=== PATIENT | female | born 1950 | race Caucasian/White ===

== ENCOUNTER → 2018-04-26 | Outpatient (CLI) | payer OTHER ==
[~2018-04-26] MED LIST: ASPIR 8181 MG PO; BALANCE B-1001 EACH PO; CENTRUM SILVER1 EAC4 PO; KEFLEX250 MG PO; LOSARTAN POTAS100 MG PO; MYRBETRIQ25 MG PO; NORCO 7.5-3251 EACH PO; PRILOSEC 20 MG20 MG PO; SYNTHROID100 MC1 PO; TUMS PO; VENTOLIN HFA 1818 GM INH; VITAMIN D-32000 UNIT PO; VITAMIN E400 UNIT PO
--- NOTE | ~2018-04-26 | EKG ---
[address] [address] ELECTROCARDIOGRAM REPORT Name: YASMINE VILLELA Room #: REG CLI [facility]#: [id number] Admission: 04/26/18 Attend Phys: Roe Beaulieu MD Discharge: Date of : 48 Report #: [id number] THIS REPORT FOR: //name// [facility] Test Date: 2018-04-26 Test Time: 15:13:45 Pat Name: YASMINE VILLELA Department: Room: Gender: F Interior Decorator Painting: Guillaume SANTILLAN : 1950 Requested By: Roe Beaulieu Order Number: [id number] MD: Jude Brock Measurements Intervals [place] Rate: 89 P: 50 [place]: 158 QRS: 1 QRSD: 85 T: 57 QT: 344 QTc: 419 Interpretive Statements Sinus rhythm Probable left atrial enlargement Consider anterior infarct Baseline wander in lead(s) I,II,aVR No previous ECG available for comparison Electronically Signed On 04-27-2018 9:04:33 CDT by Jude Brock [email or web address] <ELECTRONICALLY SIGNED> By: Jude Brock MD 04/27/18 0904 151 151 Jude Brock MD /JUANJO
== END ==
LOC: CV 14:54
DX: E06.3 Autoimmune thyroiditis (principal); R94.5 Abnormal results of liver function studies

== ENCOUNTER 2018-05-09 05:31 | Day surgery (SDC) | payer OTHER ==
[~2018-05-09] VITALS: Ht 162.6 cm; Wt 84.1 kg
--- NOTE | ~2018-05-09 | O ---
[facility] [place] [address] OPERATIVE REPORT Name: YASMINE VILLELA Room #: [facility].#: [id number] Admission: 05/09/18 Attend Phys: Roe Beaulieu MD Discharge: 05/10/18 Date of : 48 Report #: [id number] THIS REPORT FOR: //name// CC: Roe Tijerina MD Physician staff PATRIA Coronado MD DATE OF SERVICE: 05/09/2018 SURGEON: Roe Beaulieu MD PREOPERATIVE DIAGNOSES: 1. Hyperthyroidism. 2. Graves disease. POSTOPERATIVE DIAGNOSES: 1. Hyperthyroidism. 2. Graves disease. OPERATION PERFORMED: Total thyroidectomy. INDICATIONS: The patient is a 67-year-old female referred for consideration of total thyroidectomy in light of hyperthyroidism and Graves disease. The patient has a diffusely enlarged heterogenous thyroid on an ultrasound 02/23/2018. She has had a persistent elevation of T3 and high normal T4 with a depressed TSH. The patient has a history of this since the . She was treated with propylthiouracil in the , did seem to help for a few years, but has had an elevation of her liver enzymes. The patient is not interested in I-131 ablative therapy and is interested in more definitive treatment. We did discuss options of total thyroidectomy and the patient has elected to proceed. DESCRIPTION OF PROCEDURE: The patient was brought to the operating room and placed supine on the operating table. After adequate general anesthesia was achieved via endotracheal intubation, the patient's shoulder roll was placed and neck was extended. The planned incision was marked out in a relaxed skin tension line overlying the manubrium. This was injected with 1% Xylocaine with 1:100,000 epinephrine. As a separate part of the procedure, the [employer] nerve integrity monitor was applied to the electrodes from the endotracheal tube. Ground electrodes were placed in the soft tissue overlying the sternum and contralateral shoulder. Electrode resistance and impedance was measured and found to be acceptable. Threshold and stimulus intensity parameters were set and the patient was monitored for the entirety of the case for approximately 2 hours in order to [place] [address] [place] [address] OPERATIVE REPORT Name: YASMINE VILLELA Room #: DEP [facility] M.R.#: [id number] Admission: 05/09/18 Attend Phys: Roe Beaulieu MD Discharge: 05/10/18 Date of : 48 Report #: [id number] locate and protect the recurrent laryngeal nerve. Anesthesia was made aware of her hyperthyroidism. Because of low heart rate, beta blockade was not done, but anesthesia technique with such to protect against thyroid storm. She was prepped and draped in a sterile fashion. The procedure began with incision through skin, subcutaneous tissue and platysma. Subplatysmal flaps were elevated superiorly and inferiorly. Dissection was made down to the strap muscles. These were divided vertically in the midline and retracted laterally. Examination revealed a very vascular, heterogenous enlarged thyroid. Dissection began on the patient's left side using the Harmonic scalpel. The superior lobe was dissected free. The superior thyroid artery and vein were clipped between Ligaclips and divided. Middle thyroid vein was taken down between Ligaclips and then dissection began inferiorly. The inferior vessels were sequentially identified, clamped between Ligaclips and divided. Isthmus was then dissected off the trachea. This was divided to the right midline to keep the isthmus with the left lobe. This was then rotated up on to the trachea. Dissection in the tracheoesophageal groove revealed the recurrent laryngeal nerve in its usual anatomic position. This was confirmed with probe stimuli and tracked superiorly to the cricothyroid joint. Both the superior and inferior parathyroid were found attached to the thyroid capsule. These were dissected free, left pedicled on their blood supply and preserved. Mahmood's ligament was then taken down sharply. Care was taken to be sure that the nerve was in direct vision at all times and this lobe delivered off field as specimen to pathology including the left thyroid lobe and isthmus. Attention was then turned to the right side. Again superiorly, the superior vessels were sequentially identified, clamped between Ligaclips and divided. The middle thyroid vein was taken down between Ligaclips and the inferior vessels were sequentially identified, clamped between Ligaclips and divided. This lobe was then rolled up on to the trachea. Dissection in the tracheoesophageal groove revealed the recurrent nerve. This was tracked superiorly to the cricothyroid joint. Having this in direct vision, Mahmood's ligament was taken down. Both superior and inferior parathyroid were again attached to the capsule, dissected free and preserved. This lobe was delivered off the field as a separate specimen and labeled right lobe. Hemostasis was then assured with a clip ligature and bipolar cautery. The gland as predicted was a very vascular gland. Irrigation was done on both sides. Once hemostasis was assured, powdered Nick was placed into each tracheoesophageal groove. No other packing was done. The patient's wound was then closed in layers with closing the strap muscles vertically in the midline with interrupted 3-0 Vicryl. Prior to closure, a 10-Turkish Panfilo drain was placed through a separate stab incision, curled into the wound and connected to bulb suction. This was drained and was sutured in place with 2-0 silk. The [address] [place] [address] OPERATIVE REPORT Name: VILLELAYASMINE Shania Room #: DEP [facility]..#: [id number] Admission: 05/09/18 Attend Phys: Roe Beaulieu MD Discharge: 05/10/18 Date of : 48 Report #: [id number] platysmal layer was then closed with interrupted 4-0 Vicryl, 4-0 Vicryl deep dermal sutures were then placed and a 5-0 running subcuticular Prolene on skin. Mastisol and Steri-Strips were applied followed by an Op-Site. The patient was then returned to anesthesia, awakened without difficulty, returned to recovery in good condition. Sponge and needle counts were correct. There were no complications. Blood loss was about 20 mL. The patient will be watched overnight for monitoring. Intraoperatively, she had no difficulty with hypertension or tachycardia. Presuming the patient does well, she may be discharged in the morning with plans to follow up with me in 48 hours for drain removal, 1 week for suture removal. Written and verbal discharge instructions and emergency precautions have been given to her . DISCHARGE MEDICATIONS: Include cephalexin 500 mg q.i.d. for 10 days, Phenergan suppository 25 mg 1 per rectum q. 4-6 hours p.r.n., hydrocodone/acetaminophen 7.5/325 one to two q. 4-6 hours p.r.n. She will start Synthroid 100 mcg one p.o. every day and Tums 2 tablets t.i.d. for calcium. She is instructed on light activity and a soft diet. <ELECTRONICALLY SIGNED> By: Roe Beaulieu MD 05/14/18 1220 1514 1719 Roe Beaulieu MD /nt
--- NOTE | ~2018-05-09 | PATH ---
[facility] [place] [address] PATHOLOGY RPT PROCEDURE Name: ROCIO VILLELA Room #: DEP [facility] M.R.#: [id number] Admission: 05/09/18 Date of : 48 Discharge: 05/10/18 Report #: [id number] Path Case #: [id number] [facility] Accession Number: [id number] . 01 Material submitted: . PART A: LEFT THYROID LOBE AND ISTHMUS PART B: RIGHT THYROID LOBE . 01 Clinical history: . Pre-op diagnosis: Hyperthyroiditis Post-op diagnosis: Hyperthyroidism . 02 Diagnosis: A. "Left thyroid lobe and isthmus", thyroid lobectomy: - Thyroid gland with nodular hyperplasia, marked chronic thyroiditis, extensive Hurthle cell metaplasia and focal areas consistent with hyperfunctioning thyroid gland tissue. - Lymph nodes, (8) perithyroidal, with mild hyperplasia (8 nodes). . B. "Right thyroid lobe", thyroid lobectomy: - Thyroid gland with nodular hyperplasia, marked chronic thyroiditis, extensive Hurthle cell metaplasia and focal areas consistent with hyperfunctioning thyroid gland tissue. . (GAURAVW:kiera;05/11/2018) AGA05/11/2018 . 02 Electronically signed: . Justine Dyson MD, Pathologist NPI- [id number] . 01 Gross description: . A. The specimen is received in formalin, labeled "Rocio Villela, left thyroid lobe and isthmus". Received is an 11 g thyroid lobe measuring 5.4 x 3.0 x 2.2 cm with attached isthmus measuring 1.1 x 1.1 x 0.4 cm. The capsule is intact displaying a slight amount of overlying adhesions. The specimen is inked as follows: Anterior-blue, posterior-black. Sectioning reveals pale herrera to red-brown cut surfaces throughout. Alternating sections are submitted from superior to inferior aspects in cassettes A1 through A7. . B. The specimen is received in formalin, labeled "Rocio Villela, right thyroid lobe". Received is an 11 g thyroid lobe measuring 5.3 x 3.0 x 2.2 cm in greatest dimensions. The capsule is slightly disrupted displaying overlying adhesions. The specimen is inked as follows: Anterior-green, posterior-black. Sectioning reveals pale herrera to red-brown cut surfaces throughout. Alternating sections are submitted [place] [address] PATHOLOGY RPT PROCEDURE Name: ROCIO VILLELA Room #: DEP [facility] Mitzi#: [id number] Admission: 05/09/18 Date of : 48 Discharge: 05/10/18 Report #: [id number] Path Case #: [id number] aspects in cassettes B1 through B7. (CAA; 05/10/2018) QAC/QAC . 02 Pathologist provided ICD-10: E06.5, E04.1, R59.9 . 02 CPT . 534106, 045648, 053711 Specimen Comment: A courtesy copy of this report has been sent to Specimen Comment: [phone], . Specimen Comment: Report sent to / DR GUILLERMO Specimen Comment: A duplicate report has been generated due to demographic updates. Performed at: [address] [facility], [place] [id number] MD Mandeep Pruitt MD Phone: [phone] Performed at: [address] [facility] [id number] MD Suly Navarro MD Phone: [phone]
[~2018-05-09 05:31] MED LIST changes: -KEFLEX250 MG PO; -NORCO 7.5-3251 EACH PO; -SYNTHROID100 MC1 PO; -TUMS PO
[2018-05-09 11:15] VITALS: BP 161/76
[2018-05-09] MEDS ORDERED: TUMS PO (15:24)
[2018-05-09] MEDS ORDERED: SYNTHROID100 MC1 PO (15:24)
[2018-05-09] MEDS ORDERED: KEFLEX250 MG PO (15:26)
[2018-05-09] MEDS ORDERED: NORCO 7.5-3251 EACH PO (15:27)
[2018-05-09 15:58] LABS: MAGNESIUM 1.7 mg/dL (1.8-2.4)
[2018-05-09 17:24] VITALS: BP 137/71
[2018-05-09 17:45] VITALS: BP 128/66
[2018-05-09 18:00] VITALS: BP 131/73
[2018-05-09 19:13] VITALS: BP 127/64
[2018-05-10 00:09] VITALS: BP 116/60
[2018-05-10 05:10] VITALS: BP 102/59
[2018-05-10 08:00] VITALS: BP 113/70
[2018-05-10 10:17] VITALS: BP 113/70
== END 2018-05-10 11:53 | disposition home or self-care (01) ==
LOC: OR 05:31 → TBA 05:31 → 4W 05:31 → OR 14:31 → 4W 17:24 → ENTRNSPT 05-10 11:45 → EDTRNSPTSTS 05-10 11:46 → OR 05-10 11:53
PROVIDERS: Otolaryngology Plastic Surgery within the Head & Neck
DX: E06.5 Other chronic thyroiditis (principal); E05.00 Thyrotoxicosis with diffuse goiter without thyrotoxic crisis or storm; J45.909 Unspecified asthma, uncomplicated; I10 Essential (primary) hypertension; K21.9 Gastro-esophageal reflux disease without esophagitis; Z79.899 Other long term (current) drug therapy; Z90.710 Acquired absence of both cervix and uterus; Z90.89 Acquired absence of other organs; Z90.13 Acquired absence of bilateral breasts and nipples; Z90.49 Acquired absence of other specified parts of digestive tract; Z98.890 Other specified postprocedural states
CPT/HCPCS: 10047; 50010; 50101; 50386; 50417; 52190; 52220; 52225; 52287; 56524; 56526; 56528; 56668; 56760; 57006; 62110; 62900; 70005